=== PATIENT | female | born 1945 | race Caucasian/White ===

== ENCOUNTER → 2019-07-21 | Outpatient (CLI) | payer MEDICARE ==
[~2019-07-21] MED LIST: DICL50TA2 PO; FLUO10CA7 PO; OMEP40CA42 PO; TRAM50TA2 PO; TRAZ-137 PO
== END | disposition home or self-care (01) ==
LOC: ROC 10:49
PROVIDERS: ATTEND Radiology Radiation Oncology
DX: C79.82 Secondary malignant neoplasm of genital organs (principal); K76.89 Other specified diseases of liver; N28.1 Cyst of kidney, acquired; K59.00 Constipation, unspecified; K21.9 Gastro-esophageal reflux disease without esophagitis; M19.90 Unspecified osteoarthritis, unspecified site; Z78.0 Asymptomatic menopausal state
CPT/HCPCS: G0463